=== PATIENT | male | born 1960 | race Caucasian/White ===

== ENCOUNTER 2016-07-17 08:33 | Emergency (ER) | payer OTHER ==
[2016-07-17] MEDS ORDERED: DIPH,PERTUSS(ACELL),TET VAC/PF 0.5 ML VIAL IM ONE (08:52)
[2016-07-17] MEDS ORDERED: LIDOCAINE HCL 2% 20 ML VIAL ONE (08:54)
--- NOTE | 2016-07-17 09:47 | ER PHYSICIAN DOCUMENTATION ---
Physician Documentation [facility] Name:Kolby Dave Age:56 yrs Sex:Male :1960 Arrival Date:07/17/2016 Time:08:33 Bed1 Private MD: Segundo Davis Disposition: 07/17/16 09:09 Discharged to Home/Self Care. Impression: Amputation of Fingertip. - Condition is Good. - Discharge Instructions: FINGER TIP AMPUTATION, Open Tx, FINGER LACERATION - LACERATION, Hand, Diphtheria Tetanus acellular Pertussis Vaccines - PERTUSSIS (6yr-Adult). - Medical Reconciliation form form. - Follow up: Emergency Department; When: 1 - 2 days; Reason: Recheck today's complaints. - Problem is new. - Symptoms have improved. HPI: 07/17 09:00 This 56 yrs old Male presents to ER via Private Vehicle with complaints of sc Finger Injury. 09:00 The patient or guardian reports a laceration, complex. The complaints affect the palmar sc aspect of distal phalanx of left thumb. Context: The problem was sustained at work, resulted from kitchen knife. Onset: The symptom(s)/episode began/occurred just prior to arrival. Associated signs and symptoms: The patient has no apparent associated signs or symptoms. Historical: - Allergies: No known drug Allergies; - Home Meds: 1. None - PMHx: None; - PSHx: None; - Tetanus: > 10 years. - Ebola Screening: : Patient denies exposure to infectious person. Patient denies travel to an Ebola-affected area in the 21 days before illness onset. . - Social history: Smoking status: Patient states was never smoker of tobacco. Patient uses alcohol but reports only rare drinking. marijuana. ROS: 09:03 Constitutional: Negative for fever, chills, and weight loss. sc Eyes: Negative for injury, pain, redness, and discharge. Neck: Negative for injury, pain, and swelling. Cardiovascular: Negative for chest pain, palpitations, and edema. Respiratory: Negative for shortness of breath, cough, wheezing, and pleuritic chest pain. 09:03 Neuro: Negative for headache, weakness, numbness, tingling, and seizure. sc 09:03 MS/extremity: Positive for injury or acute deformity, laceration. Exam: Constitutional: This is a well developed, well nourished patient who is awake, alert, and in no acute distress. Head/Face: Normocephalic, atraumatic. 09:03 Eyes: Pupils equal round and reactive to light, extra-ocular motions intact. Lids and sc lashes normal. Conjunctiva and sclera are non-icteric and not injected. Cornea within normal limits. Periorbital areas with no swelling, redness, or edema. 09:03 Musculoskeletal/extremity: Extremities: grossly normal except: laceration, ROM: intact in all extremities, Circulation is intact in all extremities. Sensation intact. decreased sensation. Vital Signs: 08:39 BP 133 / 85; Pulse 75; Resp 22; Pulse Ox 94% on R/A; Pain 9/10; st 09:46 Pulse 73; Resp 18; Pulse Ox 93% ; Pain 0/10; st Laceration: 09:04 Wound Repair of 3cm ( 1.2in ) subcutaneous laceration to palmar aspect of distal sc phalanx of left thumb. Linear shaped.. Skin/tissue flap noted.. Distal neuro/vascular/tendon intact. Anesthesia: Digital block administered with 4 mls of 2% lidocaine. Wound prep: Simple cleansing by nurse. Skin closed with 6 4-0 Nylon using Interrupted sutures. Dressed with Bacitracin, tube gauze. Patient tolerated well. MDM: 08:36 Patient medically screened. ia 09:05 Differential diagnosis: dislocation, open fracture, closed fracture, no bone or tendon sc involvement on exploration during closure. Data reviewed: vital signs, nurses notes, and as a result, I will discharge patient. Counseling: I had a detailed discussion with the patient and/or guardian regarding: the historical points, exam findings, and any diagnostic results supporting the discharge/admit diagnosis, the need for outpatient follow up. 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 Exp: 04/09/2018. Lot #: [id number] in sharps container.. } Route: IM; Site: left deltoid; 09:46 Follow up: Response: No adverse reaction st Signatures: Lara Sharif RN RN st Chew, Scott, MD MD ia
--- NOTE | 2016-07-17 09:47 | ER NURSING DOCUMENTATION ---
Nurse's Notes [facility] Name:Kolby Dave Age:56 yrs Sex:Male :1960 Arrival Date:07/17/2016 Time:08:33 Bed1 Private MD: Diagnosis:Amputation of Fingertip Presentation: 07/17 08:37 Presenting complaint: Patient states: pt cut his left thumb with a serrated knife. st Transition of care: Other work. 08:37 Acuity: CRUZ 3 st 08:37 Method Of Arrival: Private Vehicle st Triage Assessment: 08:38 General: Appears uncomfortable, Behavior is cooperative. Pain: Complains of pain in st dorsal aspect of distal phalanx of left thumb Pain currently is 9 out of 10 on a pain scale. Pain began 30 min ago. Cardiovascular: No deficits noted. Respiratory: No deficits noted. GI: No deficits noted. Musculoskeletal: pt has minimal sensation in the tip of his left thumb. Injury Description: Avulsion sustained to palmar aspect of distal phalanx of left thumb is partial was sustained less than 30 minutes ago. Historical: - Allergies: No known drug Allergies; - Home Meds: 1. None - PMHx: None; - PSHx: None; - Tetanus: > 10 years. - Ebola Screening: : Patient denies exposure to infectious person. Patient denies travel to an Ebola-affected area in the 21 days before illness onset. . - Social history: Smoking status: Patient states was never smoker of tobacco. Patient uses alcohol but reports only rare drinking. marijuana. Screenin:40 Infectious Disease Risk None. Abuse screen: Denies threats or abuse. Denies injuries st from another. Nutritional screening: No deficits noted. Vital Signs: 08:39 BP 133 / 85; Pulse 75; Resp 22; Pulse Ox 94% on R/A; Pain 9/10; st 09:46 Pulse 73; Resp 18; Pulse Ox 93% ; Pain 0/10; st ED Course: 08:34 Patient arrived in ED. lm3 08:36 Segundo Steel MD is Attending Physician. sc 08:37 Lara Sharif RN is Primary Nurse. st 08:[address] 08:40 Valuables Remains with patient Patient has correct armband on for positive st identification. 09:05 Wound care located on dorsal aspect of distal phalanx of left thumb was Irrigation st Normal Saline Patient tolerated well. 09:45 Wound care was dressed with bacitracin Tube Gauze Telfa. 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 Exp: 04/09/2018. Lot #: [id number] in sharps container.. } Route: IM; Site: left deltoid; 09:46 Follow up: Response: No adverse reaction st Outcome: 09:09 Discharge ordered by . nv 09:46 Discharged to home ambulatory. st 09:46 Condition: improved 09:46 Discharge instructions given to patient, Instructed on discharge instructions, follow up and referral plans. 09:47 [address] the ED. st 07/18 09:27 Discharge F/U Call: Spoke with: patient. Overall Care on a scale of 1-[address] being the best care, you rate our care as: Other comments: pt is very appreciative of the care he received. pt has no questions or concerns and states he is doing well. pt will be back tomorrow for a dressing change. Signatures: Lara Sharif, Segundo Iyer RN, MD MD nv Valerie Ornelas lm3
== END 2016-07-17 09:47 | disposition home or self-care (01) ==
LOC: ER 08:33
DX: S61.012A Laceration without foreign body of left thumb without damage to nail, initial encounter (principal); W26.0XXA Contact with knife, initial encounter; Y92.59 Other trade areas as the place of occurrence of the external cause; Y93.G1 Activity, food preparation and clean up; Z23 Encounter for immunization; Y99.0 Civilian activity done for income or pay
CPT/HCPCS: 12002; 90471; 99283

== ENCOUNTER 2016-07-19 14:13 | Emergency (ER) | payer OTHER ==
--- NOTE | 2016-07-19 14:31 | ER NURSING DOCUMENTATION ---
Nurse's Notes [facility] Name:Kolby Dave Age:56 yrs Sex:Male :1960 Arrival Date:07/19/2016 Time:14:13 Bed2 Private MD: Diagnosis:Finger Laceration Presentation: 07/19 14:29 Presenting complaint: Patient states: Pt here for dressing change left thumb Sutured ma flap type of lac noted with sutures intact, no redness or drainage flap pink. Transition of care: Home. 14:29 Acuity: CRUZ 5 ma 14:29 Method Of Arrival: Private Vehicle ma Vital Signs: 14:30 Temp 97.8; ma ED Course: 14:14 Patient arrived in ED. arc 14:27 Lukasz Ayon MD is Attending Physician. tl1 14:29 Aarti Licona, RN is Primary Nurse. ma 14:30 Triage completed. ma Administered Medications: No medications were administered Outcome: 14:28 Discharge ordered by . tl1 14:30 Patient left the ED. ma 14:35 No charge visit due to Wound check, dressing change. ma Signatures: Aarti Licona, RN RN Lukasz Simons MD MD tl1 Tegan Steel, Reg Reg arc
--- NOTE | 2016-07-19 14:31 | ER PHYSICIAN DOCUMENTATION ---
Physician Documentation [facility] Name:Kolby Dave Age:56 yrs Sex:Male :1960 Arrival Date:07/19/2016 Time:14:13 Bed2 Private MD: Lukasz Mehta Disposition: 07/19 14:30 Chart complete. tl1 Disposition: 07/19/16 14:28 Discharged to Home/Self Care. Impression: Finger Laceration. - Condition is Good. - Discharge Instructions: FINGER LACERATION - LACERATION, Hand. - Medical Reconciliation form form. - Follow up: Private Physician; When: 2 - 3 days; Reason: Recheck today's complaints, Continuance of care. - Problem is new. - Symptoms are unchanged. HPI: 14:20 This 56 yrs old Male presents to ER via Private Vehicle with complaints of tl1 Recheck. 14:20 The patient has been recently seen at the [facility] Emergency tl1 Department. 3 days ago he sustained a laceration to his left thumb. This was a near amputation of the tip, and was sutured here. He is here for a recheck. He denies spreading redness or pain.. ROS: 07/20 16:00 MS/extremity: Negative for erythema, swelling. tl1 Exam: 16:00 Musculoskeletal/extremity: Extremities: Sutures intact. No pus or redness. The tl1 periphery of the flap is pale and likely ischemic, but the central aspect appears to be vascularized.. Vital Signs: 07/19 14:30 Temp 97.8; rosey MDM: 14:26 Patient medically screened. tl1 14:30 Data reviewed: and as a result, I will discharge patient. tl1 Dispensed Medications: No medications were administered Signatures: Aarti Licona, Lukasz Field RN, ma, MD MD tl1
== END 2016-07-19 14:31 | disposition home or self-care (01) ==
LOC: ER 14:13
DX: Z48.00 Encounter for change or removal of nonsurgical wound dressing (principal); S61.012D Laceration without foreign body of left thumb without damage to nail, subsequent encounter